=== PATIENT | male | born 1990 | race Caucasian/White ===

== ENCOUNTER 2022-08-13 23:39 | Emergency (ER) | payer BC, SELFPAY ==
[2022-08-14 00:02] VITALS: BP 114/81; PULSE 87; RESP 16; TEMP 36.2; O2SAT 100; BMI 24.3
--- NOTE | 2022-08-14 00:18 | ED.NAVMDI ---
HPI - Nausea/Vomiting/Diarrhea General Chief complaint: Nausea/Vomiting Stated complaint: Vomiting, stomach issues, sweating Time Seen by Provider: 08/13/22 23:52 Source: patient Mode of arrival: ambulatory Limitations: no limitations History of Present Illness HPI Narrative: 32-year-old male presents to the emergency department with a single episode of vomiting. 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 He reports that his girlfriend, 2 children have been ill with similar symptoms at home and he had been feeling well until tonight. 5 minutes before he entered the emergency department, he had sudden onset of feeling of nausea and vomited. He comes into the ED and has a single bout of diarrhea in our bathroom. Neither contained any blood. There was no syncope, racing heart, fever or other worrisome features. He did not try taking any ylhl-bms-ofrrnks medications like Imodium, Pepto, etc.. He did try taking 1 Tylenol earlier today. No headache, no trauma or injury. No recent antibiotic use. No history of GI surgeries. He has had a mild cough for the past 5 days with no dyspnea. He does use an E cigarette. He has some mild epigastric abdominal pain but otherwise denies any other symptoms times 12 systems. Past medical history notable for ADHD. Denies any prior GI surgeries. Home medications are Adderall 20 mg twice daily. Denies allergies. Denies alcohol intoxication, does admit to E cigarette use. No pertinent travel. Related Data Home Medications Medication Instructions Recorded Confirmed dextroamphetamine-amphetamine 10 08/14/22 mg tablet Allergies Allergy/AdvReac Type Severity Reaction Status Date / Time No Known Drug Allergies Allergy Verified 08/14/22 00:05 Exam Const: Vital Signs, click to edit/add: Vital Signs - 24 hr 08/14/22 00:02 Temperature 97.1 F L Pulse Rate [Left P ulse Oximeter] 87 Respiratory Rate 16 Blood Pressure [Ri ght Upper Arm] 114/81 Pulse Oximetry 100 Oxygen Delivery Me thod Room Air Common normals: no apparent distress General appearance: cooperative and well kempt Other: Does not appear ill. HENMT: Common normals: normocephalic Head and scalp: normocephalic Face and sinus: normal facial exam Mouth: oral and palatal mucosa normal Throat: posterior oropharynx normal Eye: General eye: normal appearance of both eyes Resp: Common normals: normal respiratory effort, no use of accessory muscles and clear to auscultation bilaterally Effort & inspection: able to speak in complete sentences Auscultation: clear to auscultation bilaterally Cardio: Common normals: regular rate, regular rhythm, S1 normal heart sound, S2 normal heart sound, no murmurs and peripheral pulses 2+ throughout Rate: regular rate Rhythm: regular rhythm Heart sounds: S1 normal and S2 normal Peripheral pulses: pulses 2+ throughout GI: Common normals: Normal to inspection, nondistended, normoactive bowel sounds present, soft to palpation, no hepatosplenomegaly and no masses Palpation: soft and no hepatosplenomegaly Other: Mild epigastric discomfort with no rebound tenderness or guarding Extremity: Common normals: no pedal edema Neuro: Speech: speech normal Motor exam: strength 5/5 throughout and no movement abnormalities noted Psych: Appearance: well kempt Attitude: engaged Activity/motor behavior: appropriate eye contact Mood and affect: euthymic mood Insight: fair Judgement: fair Skin: Common normals: no rashes or lesions noted General skin exam: no rashes or lesions noted Course Vital Signs Vital signs: Initial Vital Signs Temperature 97.1 F L 08/14/22 00:02 Temperature Source Temporal Artery Scan 08/14/22 00:02 Pulse Rate 87 08/14/22 00:02 Respiratory Rate 16 08/14/22 00:02 Blood Pressure 114/81 08/14/22 00:02 Blood Pressure Mean 92 08/14/22 00:02 Blood Pressure Position Sitting 08/14/22 00:02 Pulse Oximetry 100 08/14/22 00:02 Oxygen Delivery Method 08/14/22 00:02 Vital Signs Temperature 97.1 F L 08/14/22 00:02 Pulse Rate 87 08/14/22 00:02 Respiratory Rate 16 08/14/22 00:02 Blood Pressure 114/81 08/14/22 00:02 Pulse Oximetry 100 08/14/22 00:02 Oxygen Delivery Method 08/14/22 00:02 Temperature 97.1 F L 08/14/22 00:02 Pulse Rate 87 08/14/22 00:02 Respiratory Rate 16 08/14/22 00:02 Blood Pressure 114/81 08/14/22 00:02 Pulse Oximetry 100 08/14/22 00:02 Oxygen Delivery Method 08/14/22 00:02 MDM - Nausea/Vomiting/Diarrhea MDM Narrative Medical decision making narrative: No fever, no worrisome features. No significant pain, no blood. No trauma or injury. Symptoms present less than 20 minutes upon arrival. No suspicion for significant pathology. Discussed with patient. Recommended a trial of oral Zofran and Imodium, home management with fluids and Zofran. All questions answered, plan of care discussed. Differential Diagnosis Differential diagnosis: Likely traveler's diarrhea, gastroenteritis, clostridium difficile infection, drug-induced nausea and vomiting and dehydration Discharge Plan Discharge Clinical Impression: Gastroenteritis Patient Disposition: Home, Self-Care Condition: Stable Instructions: Gastroenteritis (DC) Additional Instructions: There are no signs of dangerous complications. This seems to be a simple, viral gastroenteritis also known as the stomach flu. These are very common and our circulating in our community right now. They are not overly dangerous. I have given you a prescription for Zofran, a common prescription anti nausea medicine. You have already been given your 1st dose in the ED. This will not make her symptoms go away entirely but will make it to where you can at least hold down fluids. Symptoms tend to last 2-5 days. It is okay to take Tylenol and/or ibuprofen as needed for body aches, stomach discomfort. You have been given an initial dose of Imodium, a common qvww-kzt-fvgwgyj diarrhea medication. You may purchase more of this and continue taking it after each bout of diarrhea, up to 6 mg per day. Drink plenty of fluids. Abide by the BRAT diet that we discussed. Recheck in the clinic if not improving in 3 days. Activity Level: No Restrictions Discharge Diet: Regular Prescriptions: No Action dextroamphetamine-amphetamine 10 mg tablet Label Comments: TAKE 2 TABLETS BY MOUTH TWICE DAILY Stand Alone Forms: [employer] Info Instructions
[2022-08-14] MEDS: ONDANSETRON ODT 4 MG TAB 8 MG PO (00:23)
[2022-08-14] MEDS: LOPERAMIDE HCL 2 MG CAPSULE 4 MG PO (00:23)
[2022-08-14 00:49] LABS: PCR FLU A Negative PCR FLU A (Negative); PCR FLU B Negative PCR FLU B (Negative); PCR RSV Negative PCR RSV (Negative)
[2022-08-14 00:51] LABS: SARS PCR* Negative SARS-CoV-2 (Negative)
== END 2022-08-14 01:56 | disposition home or self-care (01) ==
PROVIDERS: Emergency Provider Family Medicine; PCP Family Medicine
DX: K52.9 Noninfective gastroenteritis and colitis, unspecified (principal)
CPT/HCPCS: 87502; 87634; 87635; 99283; A9270